=== PATIENT | female | born 1960 | race Caucasian/White ===

== ENCOUNTER 2020-06-19 13:52 | Outpatient (REF) | payer MEDICARE, MEDICAID, SELFPAY | END 2020-06-19 13:53 | disposition home or self-care (01) | LOC: HO.MDS 13:52 | PROVIDERS: Visit Provider Psychiatry & Neurology Neurology | DX: G35 Multiple sclerosis (principal) | CPT/HCPCS: 96365; J2930 ==

== ENCOUNTER 2020-07-24 09:14 | Outpatient (REF) | payer MEDICARE, MEDICAID, SELFPAY | END 2020-07-24 09:15 | disposition home or self-care (01) | LOC: HO.MDS 09:14 | PROVIDERS: PCP Internal Medicine; Visit Provider Psychiatry & Neurology Neurology | DX: G35 Multiple sclerosis (principal) | CPT/HCPCS: 96365; J2930 ==

== ENCOUNTER 2020-08-28 08:53 | Outpatient (REF) | payer MEDICARE, MEDICAID, SELFPAY | END 2020-08-28 08:54 | disposition home or self-care (01) | LOC: HO.MDS 08:53 | PROVIDERS: PCP Internal Medicine; Visit Provider Psychiatry & Neurology Neurology | DX: M47.12 Other spondylosis with myelopathy, cervical region (principal) | CPT/HCPCS: 96365; J2930 ==

== ENCOUNTER 2020-10-04 09:45 | Outpatient (REF) | payer MEDICARE, MEDICAID, SELFPAY | END 2020-10-04 09:46 | disposition home or self-care (01) | LOC: HO.MDS 09:45 | PROVIDERS: PCP Internal Medicine; Visit Provider Psychiatry & Neurology Neurology | DX: M47.12 Other spondylosis with myelopathy, cervical region (principal) | CPT/HCPCS: 96365; J2930 ==

== ENCOUNTER 2020-11-05 09:20 | Outpatient (REF) | payer MEDICARE, MEDICAID, SELFPAY | END 2020-11-05 09:21 | disposition home or self-care (01) | LOC: HO.MDS 09:20 | PROVIDERS: PCP Internal Medicine; Visit Provider Psychiatry & Neurology Neurology | DX: M47.12 Other spondylosis with myelopathy, cervical region (principal) | CPT/HCPCS: 96365; J2930 ==

== ENCOUNTER 2020-12-14 09:19 | Outpatient (REF) | payer MEDICARE, MEDICAID, SELFPAY | END 2020-12-14 09:20 | disposition home or self-care (01) | LOC: HO.MDS 09:19 | PROVIDERS: PCP Internal Medicine; Visit Provider Psychiatry & Neurology Neurology | DX: M47.12 Other spondylosis with myelopathy, cervical region (principal) | CPT/HCPCS: 96365; J2930 ==

== ENCOUNTER 2021-01-14 12:22 | Outpatient (REF) | payer MEDICARE, MEDICAID, SELFPAY | END 2021-01-14 12:23 | disposition home or self-care (01) | LOC: HO.MDS 12:22 | PROVIDERS: PCP Internal Medicine; Visit Provider Psychiatry & Neurology Neurology | DX: M47.12 Other spondylosis with myelopathy, cervical region (principal) | CPT/HCPCS: 96365; J2930 ==

== ENCOUNTER 2021-02-20 08:56 | Outpatient (REF) | payer MEDICARE, MEDICAID, SELFPAY | END 2021-02-20 08:57 | disposition home or self-care (01) | LOC: HO.MDS 08:56 | PROVIDERS: PCP Internal Medicine; Visit Provider Psychiatry & Neurology Neurology | DX: G35 Multiple sclerosis (principal); M47.12 Other spondylosis with myelopathy, cervical region | CPT/HCPCS: 96365; J2930 ==

== ENCOUNTER 2021-03-20 10:29 | Outpatient (REF) | payer MEDICARE, MEDICAID, SELFPAY | END 2021-03-20 10:30 | disposition home or self-care (01) | LOC: HO.MDS 10:29 | PROVIDERS: PCP Internal Medicine; Visit Provider Psychiatry & Neurology Neurology | DX: M47.12 Other spondylosis with myelopathy, cervical region (principal); G35 Multiple sclerosis | CPT/HCPCS: 96365; J2930 ==

== ENCOUNTER 2021-04-24 08:53 | Outpatient (REF) | payer MEDICARE, MEDICAID, SELFPAY | END 2021-04-24 08:54 | disposition home or self-care (01) | LOC: HO.MDS 08:53 | PROVIDERS: Visit Provider Psychiatry & Neurology Neurology | DX: G35 Multiple sclerosis (principal) | CPT/HCPCS: 96365; J2930 ==

== ENCOUNTER 2021-05-23 09:22 | Outpatient (REF) | payer MEDICARE, MEDICAID, SELFPAY | END 2021-05-23 09:23 | disposition home or self-care (01) | LOC: HO.MDS 09:22 | PROVIDERS: Visit Provider Psychiatry & Neurology Neurology | DX: G35 Multiple sclerosis (principal) | CPT/HCPCS: 96365; J2930 ==

== ENCOUNTER 2021-06-26 08:27 | Outpatient (REF) | payer MEDICARE, MEDICAID, SELFPAY | END 2021-06-26 08:28 | disposition home or self-care (01) | LOC: HO.MDS 08:27 | PROVIDERS: Visit Provider Psychiatry & Neurology Neurology | DX: G35 Multiple sclerosis (principal) | CPT/HCPCS: 96365; J2930 ==

== ENCOUNTER 2021-08-28 09:57 | Outpatient (REF) | payer MEDICARE, MEDICAID, SELFPAY | END 2021-08-28 09:58 | disposition home or self-care (01) | LOC: HO.MDS 09:57 | PROVIDERS: Visit Provider Psychiatry & Neurology Neurology | DX: G35 Multiple sclerosis (principal) | CPT/HCPCS: 96365; J2930 ==

== ENCOUNTER 2021-10-28 11:19 | Outpatient (REF) | payer MEDICARE, MEDICAID, SELFPAY | END 2021-10-28 11:20 | disposition home or self-care (01) | LOC: HO.MDS 11:19 | PROVIDERS: Visit Provider Psychiatry & Neurology Neurology | DX: G35 Multiple sclerosis (principal); M47.12 Other spondylosis with myelopathy, cervical region | CPT/HCPCS: 96365; J2930 ==

== ENCOUNTER 2021-11-25 11:20 | Outpatient (REF) | payer MEDICARE, MEDICAID, SELFPAY | END 2021-11-25 11:21 | disposition home or self-care (01) | LOC: HO.MDS 11:20 | PROVIDERS: Visit Provider Psychiatry & Neurology Neurology | DX: G35 Multiple sclerosis (principal); M47.12 Other spondylosis with myelopathy, cervical region | CPT/HCPCS: 96365; J2930 ==

== ENCOUNTER 2021-12-23 10:52 | Outpatient (REF) | payer MEDICARE, MEDICAID, SELFPAY | END 2021-12-23 10:53 | disposition home or self-care (01) | LOC: HO.MDS 10:52 | PROVIDERS: Visit Provider Psychiatry & Neurology Neurology | DX: G35 Multiple sclerosis (principal); M47.12 Other spondylosis with myelopathy, cervical region | CPT/HCPCS: 96365; J2930 ==

== ENCOUNTER 2022-01-21 10:54 | Outpatient (REF) | payer MEDICARE, MEDICAID, SELFPAY | END 2022-01-21 10:55 | disposition home or self-care (01) | LOC: HO.MDS 10:54 | PROVIDERS: Visit Provider Psychiatry & Neurology Neurology | DX: G35 Multiple sclerosis (principal); M47.12 Other spondylosis with myelopathy, cervical region | CPT/HCPCS: 96365; J2930 ==

== ENCOUNTER 2022-02-18 11:01 | Outpatient (REF) | payer MEDICARE, MEDICAID, SELFPAY | END 2022-02-18 11:02 | disposition home or self-care (01) | LOC: HO.MDS 11:01 | PROVIDERS: Visit Provider Psychiatry & Neurology Neurology | DX: G35 Multiple sclerosis (principal) | CPT/HCPCS: 96365; J2930 ==

== ENCOUNTER 2022-03-18 10:48 | Outpatient (REF) | payer MEDICARE, MEDICAID, SELFPAY | END 2022-03-18 10:49 | disposition home or self-care (01) | LOC: HO.MDS 10:48 | PROVIDERS: Visit Provider Psychiatry & Neurology Neurology | DX: G35 Multiple sclerosis (principal); M47.12 Other spondylosis with myelopathy, cervical region | CPT/HCPCS: 96365; J2930 ==

== ENCOUNTER 2022-04-15 10:51 | Outpatient (REF) | payer MEDICARE, MEDICAID, SELFPAY | END 2022-04-15 10:52 | disposition home or self-care (01) | LOC: HO.MDS 10:51 | PROVIDERS: Visit Provider Psychiatry & Neurology Neurology | DX: G35 Multiple sclerosis (principal) | CPT/HCPCS: 96365; J2930 ==

== ENCOUNTER 2022-05-12 10:50 | Outpatient (REF) | payer MEDICARE, MEDICAID, SELFPAY | END 2022-05-12 10:51 | disposition home or self-care (01) | LOC: HO.MDS 10:50 | PROVIDERS: Visit Provider Psychiatry & Neurology Neurology | DX: G35 Multiple sclerosis (principal) | CPT/HCPCS: 96365; J2930 ==

== ENCOUNTER 2022-06-10 10:18 | Outpatient (REF) | payer MEDICARE, MEDICAID, SELFPAY | END 2022-06-10 10:19 | disposition home or self-care (01) | LOC: HO.MDS 10:18 | PROVIDERS: Visit Provider Psychiatry & Neurology Neurology | DX: G35 Multiple sclerosis (principal) | CPT/HCPCS: 96365; J2930 ==

== ENCOUNTER 2022-07-07 09:56 | Outpatient (REF) | payer MEDICARE, MEDICAID, SELFPAY | END 2022-07-07 09:57 | disposition home or self-care (01) | LOC: HO.MDS 09:56 | PROVIDERS: Visit Provider Psychiatry & Neurology Neurology | DX: M47.12 Other spondylosis with myelopathy, cervical region (principal); G35 Multiple sclerosis | CPT/HCPCS: 96365; J2930 ==

== ENCOUNTER 2022-08-05 09:36 | Outpatient (REF) | payer MEDICARE, MEDICAID, SELFPAY | END 2022-08-05 09:37 | disposition home or self-care (01) | LOC: HO.MDS 09:36 | PROVIDERS: Visit Provider Psychiatry & Neurology Neurology | DX: M47.12 Other spondylosis with myelopathy, cervical region (principal) | CPT/HCPCS: 96365; J2930 ==

== ENCOUNTER 2022-09-08 09:33 | Outpatient (REF) | payer MEDICARE, MEDICAID, SELFPAY | END 2022-09-08 09:34 | disposition home or self-care (01) | LOC: HO.MDS 09:33 | PROVIDERS: Visit Provider Psychiatry & Neurology Neurology | DX: G35 Multiple sclerosis (principal) | CPT/HCPCS: 96365; J2930 ==

== ENCOUNTER 2022-10-06 11:12 | Outpatient (REF) | payer MEDICARE, MEDICAID, SELFPAY | END 2022-10-06 11:13 | disposition home or self-care (01) | LOC: HO.MDS 11:12 | PROVIDERS: Visit Provider Psychiatry & Neurology Neurology | DX: G35 Multiple sclerosis (principal) | CPT/HCPCS: 96365; J2930 ==

== ENCOUNTER 2022-10-28 11:01 | Outpatient (REF) | payer MEDICARE, MEDICAID, SELFPAY | END 2022-10-28 11:02 | disposition home or self-care (01) | LOC: HO.MDS 11:01 | PROVIDERS: Visit Provider Psychiatry & Neurology Neurology | DX: G35 Multiple sclerosis (principal) | CPT/HCPCS: 96365; J2930 ==

== ENCOUNTER 2022-11-25 10:19 | Outpatient (REF) | payer MEDICARE, MEDICAID, SELFPAY | END 2022-11-25 10:20 | disposition home or self-care (01) | LOC: HO.MDS 10:19 | PROVIDERS: Visit Provider Psychiatry & Neurology Neurology | DX: G35 Multiple sclerosis (principal) | CPT/HCPCS: 96365; J2930 ==

== ENCOUNTER 2022-12-23 10:23 | Outpatient (REF) | payer MEDICARE, MEDICAID, SELFPAY | END 2022-12-23 10:24 | disposition home or self-care (01) | LOC: HO.MDS 10:23 | PROVIDERS: Visit Provider Psychiatry & Neurology Neurology | DX: G35 Multiple sclerosis (principal) | CPT/HCPCS: 96365; J2930 ==

== ENCOUNTER 2023-01-27 10:39 | Outpatient (REF) | payer MEDICARE, MEDICAID, SELFPAY | END 2023-01-27 10:40 | disposition home or self-care (01) | LOC: HO.MDS 10:39 | PROVIDERS: Visit Provider Psychiatry & Neurology Neurology | DX: G35 Multiple sclerosis (principal) | CPT/HCPCS: 96365; J2930 ==

== ENCOUNTER 2023-02-26 10:25 | Outpatient (REF) | payer MEDICARE, MEDICAID, SELFPAY | END 2023-02-26 10:26 | disposition home or self-care (01) | LOC: HO.MDS 10:25 | PROVIDERS: PCP Internal Medicine; Visit Provider Psychiatry & Neurology Neurology | DX: G35 Multiple sclerosis (principal) | CPT/HCPCS: 96365; J2930 ==

== ENCOUNTER 2023-03-26 10:38 | Outpatient (REF) | payer MEDICARE, MEDICAID, SELFPAY | END 2023-03-26 10:39 | disposition home or self-care (01) | LOC: HO.MDS 10:38 | PROVIDERS: Visit Provider Psychiatry & Neurology Neurology | DX: G35 Multiple sclerosis (principal) | CPT/HCPCS: 96365; J2930 ==

== ENCOUNTER 2023-04-22 10:30 | Outpatient (REF) | payer MEDICARE, MEDICAID, SELFPAY | END 2023-04-22 10:31 | disposition home or self-care (01) | LOC: HO.MDS 10:30 | PROVIDERS: Visit Provider Psychiatry & Neurology Neurology | DX: G35 Multiple sclerosis (principal) | CPT/HCPCS: 96365; J2930 ==

== ENCOUNTER 2023-05-19 10:22 | Outpatient (REF) | payer MEDICARE, MEDICAID, SELFPAY | END 2023-05-19 10:23 | disposition home or self-care (01) | LOC: HO.MDS 10:22 | PROVIDERS: Visit Provider Psychiatry & Neurology Neurology | DX: G35 Multiple sclerosis (principal) | CPT/HCPCS: 96365; J2930 ==

== ENCOUNTER 2023-06-16 10:05 | Outpatient (REF) | payer MEDICARE, MEDICAID, SELFPAY | END 2023-06-16 10:06 | disposition home or self-care (01) | LOC: HO.MDS 10:05 | PROVIDERS: Visit Provider Psychiatry & Neurology Neurology | DX: G35 Multiple sclerosis (principal) | CPT/HCPCS: 96365; J2930 ==

== ENCOUNTER 2023-07-14 10:16 | Outpatient (REF) | payer MEDICARE, MEDICAID, SELFPAY | END 2023-07-14 10:17 | disposition home or self-care (01) | LOC: HO.MDS 10:16 | PROVIDERS: Visit Provider Psychiatry & Neurology Neurology | DX: G35 Multiple sclerosis (principal) | CPT/HCPCS: 96365; J2930 ==

== ENCOUNTER 2023-08-11 10:24 | Outpatient (REF) | payer MEDICARE, MEDICAID, SELFPAY | END 2023-08-11 10:25 | disposition home or self-care (01) | LOC: HO.MDS 10:24 | PROVIDERS: Visit Provider Psychiatry & Neurology Neurology | DX: G35 Multiple sclerosis (principal) | CPT/HCPCS: 96365; J2930 ==

== ENCOUNTER 2023-09-08 10:39 | Outpatient (REF) | payer MEDICARE, MEDICAID, SELFPAY | END 2023-09-08 10:40 | disposition home or self-care (01) | LOC: HO.MDS 10:39 | PROVIDERS: Visit Provider Psychiatry & Neurology Neurology | DX: G35 Multiple sclerosis (principal) | CPT/HCPCS: 96365; J2930 ==

== ENCOUNTER 2023-10-20 13:52 | Outpatient (REF) | payer MEDICARE, MEDICAID, SELFPAY ==
[2023-10-20 13:58] VITALS: BP 151/93; PULSE 92; RESP 20; TEMP 36.6; O2SAT 98; BMI 25.7
[2023-10-20] MEDS: methylPREDNISolone Sod Succ 1,000 MG in 0.9 % Sodium Chloride 100 ML 116 MG IV (14:29)
== END 2023-10-20 13:53 | disposition home or self-care (01) ==
LOC: HO.MDS 13:52
PROVIDERS: Visit Provider Psychiatry & Neurology Neurology
DX: G35 Multiple sclerosis (principal)
CPT/HCPCS: 96374; J2930

== ENCOUNTER 2023-11-11 09:22 | Outpatient (REF) | payer MEDICARE, MEDICAID, SELFPAY ==
[2023-11-11 09:34] VITALS: BP 131/86; PULSE 101; RESP 16; TEMP 36.5; O2SAT 94; BMI 25.7
[2023-11-11] MEDS: methylPREDNISolone Sod Succ 1,000 MG in 0.9 % Sodium Chloride 100 ML 116 MG IV (09:57)
== END 2023-11-11 09:23 | disposition home or self-care (01) ==
LOC: HO.MDS 09:22
PROVIDERS: Visit Provider Psychiatry & Neurology Neurology
DX: G35 Multiple sclerosis (principal)
CPT/HCPCS: 96365; J2930

== ENCOUNTER 2024-03-09 11:53 | Outpatient (REF) | payer MEDICARE, MEDICAID, SELFPAY ==
[2024-03-09 13:59] LABS: MANUAL DIFF FLAG NO
[2024-03-09 14:07] LABS: Basophils Absolute Auto 0.1 X10*3/uL (0.0-0.2); Basophils Percent Auto 1.2 % (0-2); Eosinophils Absolute Auto 0.2 X10*3/uL (0.0-0.4); Hematocrit 45.9 % (37.0-47.0); Hemoglobin 16.8 g/dl (12.0-16.0); Imm Gran Abs Auto 0.01 X10*3/uL (0.00-0.03); Imm Gran Pct Auto 0.2 % (0.0-0.4); Lymphocytes Absolute Auto 2.5 X10*3/uL (1.2-4.9); Lymphocytes Percent Auto 40.7 % (20-40); Mean Corpuscular HGB Conc 36.6 g/dl (31.0-35.0); Mean Corpuscular Hemoglobin 39.5 pg (27.0-33.0); Mean Platelet Volume 10.3 fL (9.4-12.3); Monocytes Absolute Auto 0.6 X10*3/uL (0.1-1.2); Monocytes Percent Auto 9.9 % (2-11); Neutrophils Absolute Auto 2.7 x10*3/uL (2.0-8.3); Platelet Count 135 X10*3/uL (160-400); Red Blood Count 4.25 X10*6/uL (4.20-5.50); Red Cell Distribution Width 13.5 % (11.0-16.0)
[2024-03-09 14:28] LABS: Alanine Aminotransferase 23 U/L (0-31); Albumin Level 3.9 g/dL (3.5-5.0); Alkaline Phosphatase 36 U/L (39-117); Anion Gap 13 (12-20); Aspartate Amino Transferase 34 U/L (5-31); Bilirubin Total 0.8 mg/dL (0.0-1.0); Blood Urea Nitrogen 8 mg/dL (9-16); Calcium 9.7 mg/dL (8.4-10.2); Carbon Dioxide 27 mmol/L (22-29); Chloride 105 mmol/L (96-108); Estimated Glomerular Filt Rate > 60; Glucose Random 104 mg/dL (60-115); Potassium 3.5 mmol/L (3.3-5.1); Sodium 141 mmol/L (135-145); Total Protein 7.5 g/dL (6.5-8.0)
[2024-03-09 14:49] LABS: TSH reflex Free T4 1.15 uIU/mL (0.32-4.0)
== END 2024-03-09 11:54 | disposition home or self-care (01) ==
LOC: HO.CHCLDS 11:53
PROVIDERS: Visit Provider Internal Medicine
DX: R22.1 Localized swelling, mass and lump, neck (principal); I10 Essential (primary) hypertension
CPT/HCPCS: 36415; 80053; 84443; 85025

== ENCOUNTER 2024-03-15 09:46 | Outpatient (REF) | payer MEDICARE, MEDICAID, SELFPAY ==
--- NOTE | ~2024-03-15 | US_ITS ---
EXAMINATION: US THYROID CLINICAL INFORMATION: Left neck mass. COMPARISON: None available. TECHNIQUE: Linear transducer grayscale and color Doppler examination with attention to the region of the thyroid. FINDINGS: SIZE: Measurements of the thyroid lobes and nodules are given in sagittal, anteroposterior and transverse dimensions respectively. Right Thyroid Lobe: 4.8 x 1.2 x 1.6 cm, volume 4.7 mL. Parenchyma: The gland echotexture is homogeneous. Thyroid vascularity is increased. Left Thyroid Lobe: 4.4 x 1.4 x 1.3 cm, volume 4.2 mL. Parenchyma: The gland echotexture is homogeneous. Thyroid vascularity is increased. Isthmus: 0.3 cm in maximum AP dimension. Estimated total number of nodules greater than or equal to 1 cm: 0. Compressor Stations Superintendent nodules are described as follows: 1. Location: Right mid. Size: 0.6 x 0.6 x 0.7 cm, volume 0.13 mL. Nodule characteristics: Composition: Solid (2). Echogenicity: Very hypoechoic (3). Shape: Not taller than wide (0). Margins: Smooth (0). Echogenic Foci: None (0). ACR TI-RADS total points: 5 ACR TI-RADS category: 4 2. Location: Right mid. Size: 0.3 x 0.2 x 0.3 cm, volume 0.01 mL. Nodule characteristics: Composition: Cannot be determined (2). Echogenicity: Hyperechoic (1). Shape: Not taller than wide (0). Margins: Smooth (0). Echogenic Foci: Macrocalcifications (1). ACR TI-RADS total points: 4 ACR TI-RADS category: 4 NODES: No lymphadenopathy is seen in the tissue surrounding the thyroid gland. OTHER: The palpable abnormality is described as left neck mass, palpable, question level 2, slightly left of midline inferior to thyroid by the hand hose cutter. The mass measures 5.4 x 2.1 x 5.6 cm. Echotexture similar but slightly hyperechoic relative to adjacent subcutaneous fat. There is internal vascularity. US/US thyroid IMPRESSION: Nonspecific 5.6 cm mass in the area of palpable concern. This could potentially be a lipoma, however the ultrasound appearance is nonspecific. Recommend clinical correlation with history and physical exam findings. If clinically indicated, further evaluation with MRI of the neck without and with contrast would be recommended. Normal size, homogeneous thyroid gland with increased vascularity. Recommend correlation for thyroiditis. Subcentimeter nodules in the right thyroid gland as above. No imaging his follow-up is recommended as per ACR TI-RADS guidelines. ACR TI-RADS RECOMMENDATION REFERENCE: Ultrasound-guided fine-needle aspiration, followup ultrasound, no further follow up. * TR1 (0 point) and TR2 (2 points): No FNA or follow up. * TR3 (3 points): FNA if more than or equal to 2.5 cm in maximum dimension, followup ultrasound in 1, 3 and 5 years if 1.5 to 2.4 cm in maximum dimension. * TR4 (4-6 points): FNA if more than or equal to 1.5 cm in maximum dimension, followup ultrasound in 1, 2, 3 and 5 years if 1 to 1.4 cm in maximum dimension. * TR5 (more than or equal to 7 points): FNA if more than or equal to 1 cm in maximum dimension, followup ultrasound every year for 5 years if 0.5 to 0.9 cm in maximum dimension. * TR3, TR4 or TR5 nodules that are below the size threshold for followup receive no follow up.
== END 2024-03-15 09:47 | disposition home or self-care (01) ==
LOC: HO.HMGCX 09:46
PROVIDERS: PCP Internal Medicine; Visit Provider Internal Medicine
DX: R22.1 Localized swelling, mass and lump, neck (principal); E78.1 Pure hyperglyceridemia; F51.01 Primary insomnia; I10 Essential (primary) hypertension
CPT/HCPCS: 76536

== ENCOUNTER 2024-03-24 09:56 | Outpatient (REF) | payer MEDICARE, MEDICAID, SELFPAY ==
--- NOTE | ~2024-03-24 | US_ITS ---
EXAMINATION: US ABDOMEN COMPLETE CLINICAL INFORMATION: Transaminitis. COMPARISON: None available. TECHNIQUE: Real-time imaging of the abdominal viscera. Severely limited visualization due to bowel gas and body habitus. FINDINGS: PANCREAS: Poorly visualized. ABDOMINAL AORTA: Limited visualization. INFERIOR VENA CAVA: Visualized portions are normal. LIVER: Hepatomegaly, 23.5 cm. Increased hepatic parenchymal heterogeneity and echogenicity could be associated with hepatocellular disease/hepatic steatosis and severely limits visualization. Correlation with liver function tests and clinical exam recommended to determine further management. GALLBLADDER: Gallbladder is surgically absent. COMMON BILE DUCT: Normal in caliber measuring 0.4 cm in diameter. RIGHT KIDNEY: Multiple tiny renal echogenic foci may represent vascular calcifications, artifact or tiny nonobstructive renal calculi. No hydronephrosis. Limited visualization. 0.8 cm upper pole cyst with benign features. There is no indication for follow-up imaging. The kidney measures 10.1 cm in maximum dimension. LEFT KIDNEY: No hydronephrosis. 0.4 cm lower pole calculus. 2.1 cm upper pole cyst with benign features. There is no indication for follow-up imaging. The kidney measures 9.7 cm in maximum dimension. SPLEEN: Normal. The spleen measures 11.4 cm in maximum dimension. FREE FLUID: None. US/US abdomen complete IMPRESSION: 1. Hepatomegaly, 23.5 cm. Increased hepatic parenchymal heterogeneity and echogenicity could be associated with hepatocellular disease/hepatic steatosis and severely limits visualization. Correlation with liver function tests and clinical exam recommended to determine further management. 2. Gallbladder is surgically absent. 3. Bilateral renal echogenic foci may represent vascular calcifications, artifact or tiny nonobstructive renal calculi. No hydronephrosis.
== END 2024-03-24 09:57 | disposition home or self-care (01) ==
LOC: HO.HMGCX 09:56
PROVIDERS: PCP Internal Medicine; Visit Provider Internal Medicine
DX: R74.01 Elevation of levels of liver transaminase levels (principal)
CPT/HCPCS: 76700

== ENCOUNTER 2024-04-04 09:35 | Outpatient (AMB) | payer MEDICARE, MEDICAID, SELFPAY ==
--- NOTE | 2024-04-04 09:36 | MHC.OFFVIS ---
Vital Signs 04/04/24 09:44 Height 5 ft 3 in Weight 143 lb 4.807 oz BMI 25.4 Intake Visit Reasons: Neck Mass Intake Note: Patient is seen in office for evaluation of a lipoma of the neck. Patient c/o: onset couple months, denies any discharge redness, pain, swelling, had ultrasound done. Manager Managed Care Required: No Accompanied by: Self / Same As Patient Allergies morphine [MORPHINE] Allergy (Unknown, Verified 02/23/24 10:39) CHOKE Medication List - Last Reconciled 04/04/24 by Hector Rios MD albuterol sulfate 90 mcg/actuation inhalation ibuprofen 800 mg PO TID lisinopril 5 mg PO DAILY mirtazapine 15 mg PO BEDTIME oxybutynin chloride 5 mg PO DAILY HPI Comments Details: Patient presents with a proximally 3 month history of an enlarging left neck mass. She was seen by medical doctor wanted ultrasound which demonstrates approximately 6 x 5 cm mass consistent with a lipoma. Patient was no other respiratory or thyroid symptoms. She has no such lesions elsewhere. Patient denies any fever, chills, night sweats, weight loss. Chart was reviewed and patient evaluated. Patient is half pack per day smoker for many years. [facility] Medical History (Updated 03/31/24 @ 11:37 by LARY Luna) Hypertension Primary insomnia Hypertriglyceridemia Surgical History (Updated 04/04/24 @ 09:53 by Hector Rios MD) Hx of hysterectomy Hx of appendectomy Hx laparoscopic cholecystectomy Physical Exam Vital Signs: BMI result Body Mass Index 25.4 Neck Other: Deeply situated 6 x 5 cm soft tissue mass consistent with a large lipoma. Thyroid grossly within normal limits. No other cervical periclavicular or axillary or groin adenopathy bilaterally Chest Other: Chest breath sounds bilaterally, HS 1 in GI Other: Abdomen corpulent, soft, benign Assessment & Plan Assessment & Plan (1) Palpable mass of neck: Code(s): R22.1 - Localized swelling, mass and lump, neck Category: Surgical Plan Risks, benefits, alternatives of excision of the deep soft tissue mass were reviewed with the patient and included but not limited to bleeding, infection, recurrence, numbness, pain, scarring, hoarseness, seroma formation and the patient wishes to proceed. All questions answered. Arrangements were made for this Coding Level of Care Code New Pt Level 5 (55317) Diagnoses Palpable mass of neck R22.1
[2024-04-04 09:44] VITALS: BMI 25.4
== END 2024-04-04 09:54 | disposition home or self-care (01) ==
PROVIDERS: PCP Internal Medicine; Visit Provider Surgery
DX: R22.1 Localized swelling, mass and lump, neck (principal)
CPT/HCPCS: 99204

== ENCOUNTER → 2024-04-04 09:35 | Outpatient (BNVA) | payer MEDICARE, MEDICAID, SELFPAY | PROVIDERS: PCP Internal Medicine; Visit Provider Surgery | DX: R22.1 Localized swelling, mass and lump, neck (principal) | CPT/HCPCS: 99202 ==

== ENCOUNTER 2024-05-05 05:40 | Day surgery (SDC) | payer MEDICARE, MEDICAID, SELFPAY ==
[2024-04-29 11:33] VITALS: BMI 25.3
--- NOTE | 2024-05-04 10:43 | P.CONAN_ITS ---
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) Patient Tobacco Use Status: Current everyday Tobacco user Tobacco use type: Cigarette Years Smoked: 40 Meds Allergies Allergy/AdvReac Type Severity Reaction Status Date / Time morphine [MORPHINE] Allergy Intermediate choking Verified 05/05/24 06:13 Home Medications ?Medication ?Instructions ?Recorded ?Confirmed ?Last Taken ?Type ibuprofen 800 mg tablet 800 mg PO TID PRN Pain 04/04/24 05/05/24 05/03/24 History lisinopril 5 mg tablet 10 mg PO BEDTIME 04/04/24 05/05/24 05/04/24 History mirtazapine 15 mg tablet 15 mg PO BEDTIME 04/04/24 05/05/24 Unknown History oxybutynin chloride 5 mg tablet 5 mg PO DAILY 04/04/24 05/05/24 Unknown History baclofen 10 mg tablet 10 mg PO TID PRN Pain 04/28/24 05/05/24 Unknown History Solu-Medrol IV DIRECTED 05/05/24 Unknown History Exam Height,Weight and Vital Signs: Height 5 ft 3 in Weight 64.864 kg Pertinent Lab Results Pertinent Lab Results: Laboratory Tests 03/09/24 Unknown WBC 6.0 Hgb 16.8 H Hct 45.9 Plt Count 135 L Sodium 141 Potassium 3.5 Chloride 105 Carbon Dioxide 27 BUN 8 L Creatinine 0.75 Assessment and Plan Assessment Anesthesia Assessment: Chart Reviewed
--- NOTE | 2024-05-04 20:13 | MHC.SHP ---
Pre-Procedural Eval Section A - 24 Hr Update-Section A only Date of Service: 05/05/24 The patient is an INPATIENT: No Changes since office visit: No Cold of Flu in the past 2 weeks, No New Medical Problems, No Changes in Medication and No Patient answered all questions Section B - Complete if H&P > 30 days Chief Complaint: Localized swelling, mass and lump, neck Allergies: Allergies Allergy/AdvReac Type Severity Reaction Status Date / Time morphine [MORPHINE] Allergy Intermediate choking Verified 04/29/24 08:20 Review of Systems Sugical H&P ROS: Negative: Constitution, Cardiovascular, Respiratory, Neurological, Psychiatric, Hem-Onc, Allergic/Immunologic, Gastrointestinal, Genitourinary, Musculoskeletal, Integumentary, Endocrine and Eyes/Ears/Nose/Throat Exam Surgical H&P Exam: Normal: HEENT, Normal: Heart, Normal: Lungs, Normal: Extremities, Normal: Abdomen, Normal: Skin and Normal: Neurological Plan I have reviewed the history and physical and performed a pertinent physical examination on my patient. No changes have occurred unless specified. Time Spent With Patient Time: Total time managing care of this patient today ____ minutes.
[2024-05-05 06:17] VITALS: BMI 27.4
[2024-05-05 06:23] VITALS: BP 127/81; PULSE 83; RESP 16; TEMP 36.4; O2SAT 93
[2024-05-05] MEDS: Lactated Ringers 1,000 ML 100 ML IVCONT (06:40)
[2024-05-05] MEDS: Albuterol Sulfate (0.083%) 2.5 MG/3 ML VIAL.NEB INHALE (06:46)
--- NOTE | 2024-05-05 06:54 | HO.ANESPROP2 ---
[facility] Active Problems Active Problems: All Active Problems Palpable mass of neck (Acute) Past Medical History Medical History Smoker Self-catheterizes urinary bladder Multiple sclerosis Hypertension Primary insomnia Hypertriglyceridemia Functional capacity: independent ambulation Patient : No Family History Family history of problems with anesthesia: No Surgical History Surgical History Hx of hysterectomy Hx of appendectomy Hx laparoscopic cholecystectomy History of Problems with Anesthesia: No Social History Social History Are you a primary acute care certified nursing assistant to a significant other at home: No 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) Patient Tobacco Use Status: Current everyday Tobacco user Tobacco use type: Cigarette Years Smoked: 40 Meds Allergies Allergy/AdvReac Type Severity Reaction Status Date / Time morphine [MORPHINE] Allergy Intermediate choking Verified 05/05/24 06:13 Active Medications: Current Medications Lactated Ringer's (Lr) 1,000 mls @ 100 mls/hr IVCONT .Q10H DEBORA Last Admin: 05/05/24 06:40 Dose: 100 mls/hr Home Medications ?Medication ?Instructions ?Recorded ?Confirmed ?Last Taken ?Type ibuprofen 800 mg tablet 800 mg PO TID PRN Pain 04/04/24 05/05/24 05/03/24 History lisinopril 5 mg tablet 10 mg PO BEDTIME 04/04/24 05/05/24 05/04/24 History mirtazapine 15 mg tablet 15 mg PO BEDTIME 04/04/24 05/05/24 Unknown History oxybutynin chloride 5 mg tablet 5 mg PO DAILY 04/04/24 05/05/24 Unknown History baclofen 10 mg tablet 10 mg PO TID PRN Pain 04/28/24 05/05/24 Unknown History Solu-Medrol IV DIRECTED 05/05/24 Unknown History Exam Height,Weight and Vital Signs: Height 5 ft 3 in Weight 70.216 kg Last Vital Signs Temp 97.6 F 05/05/24 06:23 Pulse 83 05/05/24 06:23 Resp 16 05/05/24 06:23 BP 127/81 05/05/24 06:23 Pulse Ox 93 05/05/24 06:23 O2 Del Method Room Air 05/05/24 06:23 Airway Mallampati Class: III TM Dist: >3cm Neck ROM: Full Denture: Upper and Lower Heart: RRR Lungs: Diminished Assessment and Plan Assessment Anesthesia Assessment: Anesthesia Plan Discussed, Smoking Cess. Discussed and Chart Reviewed Final Anesthetic Review Family History of Problems with Anesthesia: No History of Problems with Anesthesia: No NPO: Yes ASA Class: III Final Preanesthetic Review: Meds/Allgs Chart Reviewed, Consent Obtained/Reviewed and Anes Risks/Benef Reviewed Patient Risk: Low Procedure Risk: Low Anesthetic Plan Anesthetic Plan: GA Disposition: Standard PACU
--- NOTE | 2024-05-05 07:00 | PC.NURSE ---
Patient in preop. Received ventolin nebulizer, tolerated well. Lung sounds clear post treatment. SaO2 remains 91-93% room air. Respirations easy and regular. Dr. Virgen at bedside and made aware. Okay to proceed with surgery. Shelia POCKETED SPRING ASSEMBLER also aware.
--- NOTE | 2024-05-05 08:12 | W.PM.OPN ---
Operative Note Operative Note Date of Service: 05/05/24 Narrative: Preoperative diagnosis: [] Deep left neck tumor/lipoma Postop diagnosis: [] The same Procedure [] excision deep left neck lipoma Surgeon: [] Gabriel Systems Software Engineer: [] Hunter Type of Anesthesia: [] General Indication for surgery: [] Final specimen measured approximately 7 x 4 cm consistent with a large lipoma Findings: [] Patient brought to the operating room, placed on operative table in supine position, after an adequate level of general anesthesia was induced, the left neck was prepped and draped in usual sterile fashion. Using a transverse incision over the mass in question in the left mid neck, this carried down through skin, subcutaneous tissue, and platysma muscle. Identification of a large mass consistent with a lipoma was identified and circumferentially dissected out using blunt, sharp, and Bovie dissection. Uneventful enucleation was then performed and specimen sent to pathology. Wound was irrigated and secured hemostasis. It was closed in the following manner; platysma muscle was reapproximated using interrupted 3-0 Vicryl suture. Interrupted inverted deep dermal 3-0 Vicryl sutures followed by running subcuticular 4-0 Vicryl sutures were placed. Steri-Strips and sterile dressings were applied. Wound was infiltrated at the beginning and at the end with 0.5% Marcaine. Sponge, needle, and instrument counts were reported correct. Patient tolerated the procedure well and emerged from anesthesia stable condition. EBL minimal
[2024-05-05 08:15] VITALS: BP 113/79; PULSE 115; RESP 16; TEMP 36.2; O2SAT 93
[2024-05-05 08:20] VITALS: BP 116/72; PULSE 111; RESP 16; O2SAT 90
[2024-05-05 08:25] VITALS: BP 124/83; PULSE 112; RESP 16; O2SAT 90
[2024-05-05 08:30] VITALS: BP 132/71; PULSE 105; RESP 16; O2SAT 90
[2024-05-05 08:45] VITALS: BP 110/68; RESP 16; TEMP 36.2; O2SAT 90
== END 2024-05-05 09:12 | disposition home or self-care (01) ==
PROVIDERS: PCP Internal Medicine; Visit Provider Surgery
PROC: (CPT 21554; principal; 2024-05-05 07:30)
DX: D17.0 Benign lipomatous neoplasm of skin and subcutaneous tissue of head, face and neck (principal); I10 Essential (primary) hypertension; E78.1 Pure hyperglyceridemia; F51.01 Primary insomnia; G35 Multiple sclerosis; Z79.1 Long term (current) use of non-steroidal anti-inflammatories (NSAID); Z79.899 Other long term (current) drug therapy; Z88.5 Allergy status to narcotic agent; Z98.890 Other specified postprocedural states; F17.210 Nicotine dependence, cigarettes, uncomplicated
CPT/HCPCS: 21554; 88304; J0690; J1100; J2250; J2405; J2704; J2795; J3010

== ENCOUNTER → 2024-05-05 05:40 | Outpatient (BNV) | payer MEDICARE, MEDICAID, SELFPAY | PROVIDERS: PCP Internal Medicine; Visit Provider Surgery | DX: D17.0 Benign lipomatous neoplasm of skin and subcutaneous tissue of head, face and neck (principal) | CPT/HCPCS: 21556 ==

== ENCOUNTER 2024-05-16 11:18 | Outpatient (AMB) | payer MEDICARE, MEDICAID, SELFPAY ==
--- NOTE | 2024-05-16 11:35 | MHC.OFFVIS ---
Intake Visit Reasons: S/P WLE deep Lt. cervical mass Intake Note: Patient here s/p WLE deep Lt cervical mass on 05-05-2024. Reports incision healing well. Patient c/o: denies oozing, bleeding. 2nd concern: large growth on right buttock. Has been excised twice before. Tender when sitting on it. Typewriter Mechanic Required: No Accompanied by: Self / Same As Patient Allergies morphine [MORPHINE] Allergy (Intermediate, Verified 05/16/24 11:37) choking HPI Comments Details: 1. Patient presents for follow-up. She has minimal incisional discomfort. Pathology is benign. 2. Patient has a right buttock soft tissue mass. She has had this excised twice in the past and has recurred. It was symptomatic, and that is increasing in size and she would like to have this removed. She did not mentioned this on prior visit. 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) Patient Tobacco Use Status: Current everyday Tobacco user Tobacco use type: Cigarette Years Smoked: 40 Physical Exam Neck Other: Wound clean dry and intact healing very well Back/Spine/Pelvis Other: Patient has a multilobular soft tissue mass involving the right buttock measuring approximately 8 x 5 cm consistent with a multi lobulated recurrent lipoma Assessment & Plan Assessment & Plan (1) Postop check: Code(s): Z09 - Encounter for follow-up examination after completed treatment for conditions other than malignant neoplasm Category: Medical (2) Lipoma of buttock: Code(s): D17.1 - Benign lipomatous neoplasm of skin and subcutaneous tissue of trunk Category: Medical Plan 1. Neck wound instructions have been given. 2. Risks, benefits, alternatives of wide local excision of right buttock recurrent lipoma were reviewed with the patient and included but not limited to bleeding, infection, recurrence, numbness, pain, scarring, seroma formation, wound dehiscence and the patient wishes to proceed. Arrangements made for this. All questions answered. Coding Level of Care Code Est Pt Level 5 (00022) Global (05694) Diagnoses Postop check Z09 Lipoma of buttock D17.1
== END 2024-05-16 11:38 | disposition home or self-care (01) ==
PROVIDERS: PCP Internal Medicine; Visit Provider Surgery
DX: Z09 Encounter for follow-up examination after completed treatment for conditions other than malignant neoplasm (principal); D17.1 Benign lipomatous neoplasm of skin and subcutaneous tissue of trunk
CPT/HCPCS: 99024

== ENCOUNTER → 2024-05-16 11:18 | Outpatient (BNVA) | payer MEDICARE, MEDICAID, SELFPAY | PROVIDERS: PCP Internal Medicine; Visit Provider Surgery | DX: D17.1 Benign lipomatous neoplasm of skin and subcutaneous tissue of trunk (principal); Z09 Encounter for follow-up examination after completed treatment for conditions other than malignant neoplasm; Z87.2 Personal history of diseases of the skin and subcutaneous tissue; Z98.890 Other specified postprocedural states | CPT/HCPCS: 99212 ==

== ENCOUNTER 2025-01-05 10:51 | Outpatient (REF) | payer MEDICARE, MEDICAID, SELFPAY ==
--- NOTE | ~2025-01-05 | MR_ITS ---
CLINICAL HISTORY: Multiple Sclerosis MR cervical spine with and without gadolinium Comparison: None Findings: Visualized intracranial contents are unremarkable. Soft tissues of the neck are normal. Cervical cord normal size. There is a 4 mm focus of T2 signal elevation within the central cord at C3. There is a 5 mm focus of elevated T2/stir signal intensity within the lower cervical cord at C6. Within the right posterior paramedian cord at the T1 level, there is a 2 mm focus of elevated STIR signal. Loss of normal cervical lordosis. No acute fractures or pathologic bone lesions. Mild reactive signal throughout the endplates of the cervical and upper thoracic spine. C2-C3:Moderate disc desiccation. No significant canal stenosis. No significant foraminal stenosis. C3-C4:Moderate disc desiccation. Mild diffuse disc bulge. Mild facet and uncovertebral hypertrophy bilaterally. Mild canal stenosis. Mild bilateral foraminal stenosis. C4-C5:Moderate disc height loss and desiccation. Mild diffuse disc bulge. Mild facet and uncovertebral hypertrophy bilaterally. Mild canal stenosis. Moderate right and mild left foraminal stenosis. C5-C6:Moderate disc desiccation. Mild disc height loss and diffuse disc bulge. Mild facet and uncovertebral hypertrophy bilaterally. Mild canal stenosis. Mild bilateral foraminal stenosis. C6-C7:Moderate disc desiccation. Mild disc height loss and diffuse disc bulge. Mild facet and uncovertebral hypertrophy. Mild canal stenosis. Mild bilateral foraminal stenosis. C7-T1: [Moderate disc desiccation. Mild diffuse disc bulge. Mild facet and uncovertebral hypertrophy. Mild canal stenosis. Mild bilateral foraminal stenosis. IMPRESSION: 1. Abnormal signal intensity within the cervicothoracic cord as described above, consistent with a mild degree of multiple sclerosis. 2. Multilevel degenerative disc and facet disease, as well as uncovertebral hypertrophy. 3. Multilevel mild canal stenoses. 4. Multilevel foraminal stenoses, worst at C4-C5 where there is moderate foraminal stenosis. This document has been electronically signed by: Christian Morris MD on 01/05/2025 16:17:46
--- NOTE | ~2025-01-05 | MR_ITS ---
EXAMINATION: MR BRAIN WITHOUT AND WITH CONTRAST CLINICAL INFORMATION: Multiple sclerosis, follow-up. COMPARISON: 10/06/2019, 02/13/2016. TECHNIQUE: Multiplanar, multisequence MRI of the brain was obtained before and after the intravenous administration of 7 mL Gadavist. Examination performed on a 1.5 Reina high-field magnet. FINDINGS: There is no diffusion restriction. There is no intracranial hemorrhage, acute infarction, mass effect, or edema. Ventricles, sulci, and cisterns are normal in size and configuration for patient age. No shift of midline. No significant abnormal hemosiderin deposition is identified. New punctate tiny lesion just to the left of the obex (series 9, image 5). New focal lesion in the left putamen (series 9, image 14). There are otherwise numerous, stable scattered punctate and minimally confluent foci of white matter T2 hyperintensity in the periventricular, pericallosal, callosal marginal, and callosal septal white matter, in keeping with patient's known multiple sclerosis. There is a stable tiny lesion in the anterior body of the corpus callosum. After the administration of contrast, no abnormal intra or extra-axial enhancement is evident. Midline structures appear normally formed. No callosal atrophy is evident. The pituitary gland appears normal. Posterior fossa structures appear normal. Cerebellar tonsils are appropriately located. Major flow voids are preserved within the skull base. The globes and orbital contents demonstrate no abnormalities. Paranasal sinuses are clear bilaterally. Nasal septum is midline without spur. Trace fluid in the mastoid tips bilaterally. Tympanic cavities are normally aerated. Extracranial soft tissues demonstrate no abnormalities. No suspicious bone marrow changes are evident. Atlantoaxial joint is normal. MR/MR head/brain wo/w con IMPRESSION: 1. New tiny punctate demyelinating T2 hyperintense lesions in the posterior fossa just to the left of the obex, and also in the left putamen. Unknown if these are truly new lesions, or rather better detected lesions due to a newer new or and far superior 1.5 Reina Siemens magnet. 2. Otherwise, stable pattern of scattered T2/FLAIR signal hyperintensities in the supratentorial white matter in keeping with inflammatory demyelination. No abnormal enhancing lesions identified. 3. There is no callosal atrophy identified. 4. There is no intracranial hemorrhage, acute infarction, mass effect, or edema. Electronically signed by: Liam Joyner MD 01/05/2025 12:50 PM EDT
--- OUTSIDE RECORDS SUMMARY | 2025-01-05 12:02 | XMS_ITS | Encounter Summary ---
Author Organization [employer] Address [address] [place] [address] Care Team Providers Care Chemistry Tutor Name Role Phone Devyn Kwok MD Primary Care Provider [phone] Reason for Visit * Reason Comments Med Refill Encounter Details Date Type Department Care Team ([facility] st Contact Info) Description 06/28/[address] [facility] PEDS [address] [place] [address] Devyn Kwok MD [address] [place] [address] Essential hypertension Social History Tobacco Use Types Packs/Day Years Used Date Smoking Tobacco: Every Day Cigarettes 0.5 25 Smokeless Tobacco: Never Comments Unknown Sex and Gender Information Value Date Recorded Sex Assigned at Female 06/23/2022 10:19 AM EDT Legal Sex Female 10:19 AM EDT Gender Identity Female 06/23/2022 10:19 AM EDT Sexual Orientation Straight 06/23/2022 10 :19 AM EDT documented as of this encounter Plan of Treatment Not on file documented as of this encounter Visit Diagnoses Diagnosis Essential hypertension Unspecified essential hypertension documented in this encounter Care Teams Chemistry Tutor Relationship Specialty Start Date End Date Devyn Kwok MD [address] [place] [address] PCP - General Internal Medicine 08/06/12 documented as of this encounter
--- OUTSIDE RECORDS SUMMARY | 2025-01-05 12:02 | XMS_ITS | Encounter Summary ---
Author Organization [employer] Address [address] [place] [address] Care Team Providers Care Management Aide Name Role Phone Devyn Kwok MD Primary Care Provider [phone] Encounter Details Date Type Department Care Team ([facility] st Contact Info) Description 12/25/2022 Orders Only [facility] MED & PEDS [address] [place] [address] Courtney Pearce LPN Social History Tobacco Use Types Packs/Day Years Used Date Smoking Tobacco: Never Assessed Comments Unknown Sex and Gender Information Value Date Recorded Sex Assigned at Female 06/23/2022 10:19 AM EDT Legal Sex Female 10:19 AM EDT Gender Identity Female 06/23/2022 10:19 AM EDT Sexual Orientation Straight 06/23/2022 10 :19 AM EDT documented as of this encounter Plan of Treatment Not on file documented as of this encounter Visit Diagnoses Not on filedocumented in this encounter Care Teams Management Aide Relationship Specialty Start Date End Date Devyn Kwok MD [address] [place] [address] PCP - General Internal Medicine 08/06/12 documented as of this encounter
--- OUTSIDE RECORDS SUMMARY | 2025-01-05 12:02 | XMS_ITS | Encounter Summary ---
Author Organization [employer] Address [address] [facility] 7t [place] [address] Care Team Providers Care R And D Lab Technician Name Role Phone Devyn Kwok MD Primary Care Provider [phone] Reason for Referral * Consultation (Routine) - Closed Specialty Diagnoses / Procedures Referred By Wendy dominguez Referred To Contact General Surgery Diagnoses Neck mass Devyn Kwok MD [address] [place] [address] Phone: tel: fax: [facility] Sur[facility] [address] [place] [address] Drive 3rd Floor [place], [place] Phone: tel: fax: Referral ID Status Reason Start Date Expiration Date V isits Requested Visits Authorized [id number] Closed Specialty Services Required 03/17/2024 03/17/2025 1 1 * Imaging (Routine) - Closed Specialty Diagnoses / Procedures Referred By Wendy dominguez Referred To Contact Radiology Diagnoses Transaminitis Procedures US Abdomen Complete Devyn Kwok MD [address] [place] [address] Phone: tel: fax: [address] Phone: tel: fax: Referral ID Status Reason Start Date Expiration Date Visits Re quested Visits Authorized [id number] Closed 03/11/2024 03/11/2025 1 1 Encounter Details Date Type Department Care Team (Late st Contact Info) Description 03/11/2024 Orders Only [facility] [address] [facility] [place] [address] Devyn Kwok MD [address] [place] [address] Macrocytosis without anemia (Primary Dx); Transaminitis; Need for hepatitis B screening test; Neck mass Social History Tobacco Use Types Packs/Day Years [...] as of this encounter Plan of Treatment Scheduled Orders Name Type Priority Associated Diagnoses Orde r Schedule Vitamin B12/Folate, Serum Panel Lab Routine Macrocytosis without anemia Expected: 03/11/2024, Expires: 03/11/2025 Hepatitis C Antibody with Reflex to HCV, RNA, Quantitative, Real-Time PCR Lab Routine Transaminitis Expected: 03/11/2024, Expires: 03/11/2025 Hepatitis A IgM Lab Routine Transaminitis Expected: 03/11/2024 (Approximate), Expires: 03/11/2025 Hepatitis B Surface Antibody, Qualitative Lab Routine Transaminitis Need for hepatitis B screening test Expected: 03/11/2024 (Approximate), Expires: 03/11/2025 Scheduled Referrals Name Type Priority Associated Diagnoses Orde r Schedule Referral to General Surgery Outpatient Referral Routine Neck mass Expected: 03/17/2024 (Approximate), Expires: 03/17/2025 documented as of this encounter Procedures Procedure Name Priority Date/Time Associated Diagnosis Comments GROSS AND MICROSCOPIC LEVEL 3 Routine 05/05/2024 8:00 AM EDT Macrocytosis without anemia US ABDOMEN COMPLETE Routine 03/24/2024 1 0:30 AM EDT Transaminitis documented in this encounter Results * Gross and Microscopic Level 3 (05/05/2024 8:00 AM EDT) 05/05/2024 8:00 AM EDT 05/05/2024 8:33 AM EDT [facility] - 05/06/2024 2:34 PM EDT ----- ------- Name: Nadira Whitaker ?Age/Sex: 64/F ? : 1960 Unit#: [id number] ?? Attend Dr: Hector Rios MD ?Re05/05/24 ?Status: DEP SDC ? Location: HO.SSS ?Disch: ? ----- ------- SPEC : [id number] ? RECD: 05/05/24-832 ? STATUS: ??SOUT ? REQ NUM: [id number] ? ELEANOR: 05/05/24 ? SUBM DR: Hector Rios MD ? ENTERED: ??05/05/24 ?SP TYPE: Surgical ? OTHR DR: Devyn Kwok MD ? ORDERED: ??Gross Micro L3 ? Diagnosis ?? Soft tissue, deep left cervical, excision: ??Mature lobular adipose tissue consistent with ?? lipoma. ?Clinical History Localized swelling, mass and lump, neck ?Microscopic Description Microscopic sections reviewed. ? Material Received ?? Left cervical deep lipoma ? Gross Description Received in formalin labeled ?left cervical deep lipoma? is a partially fragmented, smooth and shaggy, ramirez-yellow lobular portion of adipose tissue measuring 5.5 x 4.0 x 2.5 cm. The margins are inked and the specimen is serially sectioned to reveal homogeneous yanes- yellow lobular fat with focal congestion. ??No fleshy, hemorrhagic or necrotic foci are identified. ??Respiratory Manager sections are submitted in cassettes A1-A3. CEDS Copies To: ?? Devyn Kwok MD ?? [facility] ?? [address] ?? [place] [address] ?? [phone] ?? Hector Rios MD ?? [facility] General Surgeons ?? [address] ?? [place] [address] ?? [phone] ?? [email or web address] ? CONTINUED ON NEXT PAGE ----- ------- Name: Nadira Whitaker ?Age/Sex: 64/F ? : 1960 Unit#: [id number] ?? Attend Dr: Hector Rios MD ?Re05/05/24 ?Status: DEP SDC ? Location: HO.SSS ?Disch: ? ----- ------- SPEC : [id number] ? RECD: 05/05/24 ? STATUS: ??SOUT ? REQ NUM: [id number] ? ELEANOR: 05/05/24 ? SUBM DR: Hector Rios MD ? ENTERED: ??05/05/24 ?SP TYPE: Surgical ? OTHR DR: Devyn Kwok MD ? ORDERED: ??Gross Micro L3 ? ----- ------- Signed (signature on file) [place] 05/06/24 1434 ? ----- ------- ? END OF REPORT ? us Generic External Data Provider LAB CYTOLOGY TREASURE JASMINE Final Result [facility] [address] [place] [address] [phone] * US Abdomen Complete (03/24/2024 10:30 AM EDT) Anatomical Region Laterality Modality Abdomen Ultrasound 03/24/2024 10:3 0 AM EDT Narrative 04/04/2024 2:53 PM EDT ? [facility] ?[address] ? [place] [address] ? Ultrasound Report ? Signed ? Patient: Julianne,Nadira ?MR#: [id number] ?? 908 ? : 1960 ?Acct:[id number] ? Age/Sex: 64 / F ?ADM Date: 03/24/24 ? Loc: HO.HMGCX ? Attending Dr: Devyn Kwok MD ? Ordering Physician: Devyn Kwok MD ?? Date of Service: 03/24/24 ?? Procedure(s): US abdomen complete ?? Accession Number(s): [id number] ? cc: Devyn Kwok MD ? EXAMINATION: ?? US ABDOMEN COMPLETE ? CLINICAL INFORMATION: ?? Transaminitis. ? COMPARISON: ?? None available. ? TECHNIQUE: ?? Real-time imaging of the abdominal viscera. Severely limited ?? visualization due to bowel gas and body habitus. ? FINDINGS: ? PANCREAS: Poorly visualized. ? ABDOMINAL AORTA: Limited visualization. ? INFERIOR VENA CAVA: Visualized portions are normal. ? LIVER: Hepatomegaly, 23.5 cm. Increased hepatic parenchymal ?? heterogeneity and echogenicity could be associated with hepatocellular ?? disease/hepatic steatosis and severely limits visualization. ?? Correlation with liver function tests and clinical exam recommended to ?? determine further management. ? GALLBLADDER: Gallbladder is surgically absent. ? COMMON BILE DUCT: Normal in caliber measuring 0.4 cm in diameter. ? RIGHT KIDNEY: Multiple tiny renal echogenic foci may represent vascular ?? calcifications, artifact or tiny nonobstructive renal calculi. No ?? hydronephrosis. Limited visualization. ? 0.8 cm upper pole cyst with benign features. There is no indication for ?? follow-up imaging. The kidney measures 10.1 cm in maximum dimension. ? LEFT KIDNEY: No hydronephrosis. 0.4 cm lower pole calculus. 2.1 cm ?? upper pole cyst with benign features. There is no indication for ?? follow-up imaging. The kidney measures 9.7 cm in maximum dimension. ? SPLEEN: Normal. The spleen measures 11.4 cm in maximum dimension. ? FREE FLUID: None. ? US/US abdomen complete ?? IMPRESSION: ?? 1. Hepatomegaly, 23.5 cm. Increased hepatic parenchymal heterogeneity ?? and echogenicity could be associated with hepatocellular ?? disease/hepatic steatosis and severely limits visualization. ?? Correlation with liver function tests and clinical exam recommended to ?? determine further management. ? 2. Gallbladder is surgically absent. ? 3. Bilateral renal echogenic foci may represent vascular ?? calcifications, artifact or tiny nonobstructive renal calculi. No ?? hydronephrosis. ? Dictated By: ?Juliet Higgins MD ? Signed By: ?<Electronically signed by Juliet Higgins MD in OV> ? 04/04/24 1449 ? DD/ 1030 ? TD/TT: ? Sugar Chipper Machine Operator: ? Procedure Note Donotjesinterpreter, Image - 04/04/2024 [facility] [address] [place] [address] [place] [address] Ultrasound Report Signed Patient: Jolly Whitaker#: [id number] : 1960Acct:[id number] Age/Sex: 64 / FADM Date: 03/24/24 Loc: .HMGCX Attending Dr: Devyn Kwok MD Ordering Physician: Devyn Kwok MD Date of Service: 03/24/24 Procedure(s): US abdomen complete Accession Number(s): [id number] cc: Devyn Kwok MD EXAMINATION: US ABDOMEN COMPLETE CLINICAL INFORMATION: Transaminitis. COMPARISON: None available. TECHNIQUE: Real-time imaging of the abdominal viscera. Severely limited visualization due to bowel gas and body habitus. FINDINGS: PANCREAS: Poorly visualized. ABDOMINAL AORTA: Limited visualization. INFERIOR VENA CAVA: Visualized portions are normal. LIVER: Hepatomegaly, 23.5 cm. Increased hepatic parenchymal heterogeneity and echogenicity could be associated with hepatocellular disease/hepatic steatosis and severely limits visualization. Correlation with liver function tests and clinical exam recommended to determine further management. GALLBLADDER: Gallbladder is surgically absent. COMMON BILE DUCT: Normal in caliber measuring 0.4 cm in diameter. RIGHT KIDNEY: Multiple tiny renal echogenic foci may represent vascular calcifications, artifact or tiny nonobstructive renal calculi. No hydronephrosis. Limited visualization. 0.8 cm upper pole cyst with benign features. There is no indication for follow-up imaging. The kidney measures 10.1 cm in maximum dimension. LEFT KIDNEY: No hydronephrosis. 0.4 cm lower pole calculus. 2.1 cm upper pole cyst with benign features. There is no indication for follow-up imaging. The kidney measures 9.7 cm in maximum dimension. SPLEEN: Normal. The spleen measures 11.4 cm in maximum dimension. FREE FLUID: None. US/US abdomen complete IMPRESSION: 1. Hepatomegaly, 23.5 cm. Increased hepatic parenchymal heterogeneity and echogenicity could be associated with hepatocellular disease/hepatic steatosis and severely limits visualization. Correlation with liver function tests and clinical exam recommended to determine further management. 2. Gallbladder is surgically absent. 3. Bilateral renal echogenic foci may represent vascular calcifications, artifact or tiny nonobstructive renal calculi. No hydronephrosis. Dictated By: Juliet Higgins MD Signed By: <Electronically signed by Juliet Higgins MD in OV> 04/04/24 1449 DD/ 1030 TD/TT: Sugar Chipper Machine Operator: us Devyn Kwok MD IMG US PROCEDURES Final Res ult documented in this encounter Visit Diagnoses Diagnosis Macrocytosis without anemia- Primary Other specified diseases of blood and blood-forming organs Transaminitis Nonspecific elevation of levels of transaminase or lactic acid dehydrogenase (LDH) Need for hepatitis B screening test Neck mass Swelling, mass, or lump in head and neck documented in this encounter Care Teams R And D Lab Technician Relationship Specialty Start Date End Date Devyn Kwok MD [address] [place] [id number] PCP - General Internal Medicine 08/06/12 documented as of this encounter
--- OUTSIDE RECORDS SUMMARY | 2025-01-05 12:02 | XMS_ITS | Clinical Summary ---
Author Organization [employer] Address [address] [facility] 7t [place] [address] Care Team Providers Care Continuous Mining Operator Name Role Phone Devyn Kwok MD Primary Care Provider [phone] Allergies Active Allergy Reactions Criticality Noted Date Comments Morphine Swelling 09/23/2010 Medications ibuprofen 800 MG tablet take 1 Tablet by Oral route 3 times every day as needed 03/06/20 22 Active methylPREDNISol one sodium succinate, PF, (SOLU-Medrol) 1000 MG injection infuse (30MG/KG) by intravenous route every 6 hours over as needed Active Misc. Devices (Walker) misc to use daily for ambulating 04/18/20 15 Active baclofen (Lioresal) 10 MG tablet Take 1 tablet by mouth at bed time. 09/11/19 16 Active Spacer/Aero-Hol ding Chambers deviceIndicatio ns:COVID-19 1 each Every 4-6 hours as needed (wheezing, cough). 1 each 05/06/20 23 Active albuterol 108 (90 Base) MCG/ACT inhalerIndicati ons:COVID-19 Inhale 2 puffs every 4 (four) hours if needed for wheezing or shortness of breath. 18 g 2 10/13/19 24 Active lisinopril 10 MG tabletIndicatio ns:Primary hypertension Take 1 tablet (10 mg) by mouth Once per day. 30 tablet 11 03/09/20 24 025 Active oxybutynin (Ditropan) 5 MG tabletIndicatio ns:Other spondylosis with myelopathy, cervical region TAKE 1 TABLET BY MOUTH EVERY DAY 90 tablet 2 06/17/20 24 Active ibuprofen 800 MG tablet TAKE 1 TABLET BY MOUTH THREE TIMES A DAY NEEDED 60 tablet 3 10/04/19 25 Active mirtazapine (Remeron) 15 MG tabletIndicatio ns:Depression with anxiety TAKE 1 TABLET BY MOUTH EVERY DAY BEFORE BEDTIME 90 tablet 1 12/23/19 25 Active mirtazapine (Remeron) 15 MG tabletIndicatio ns:Depression with anxiety TAKE 1 TABLET BY MOUTH EVERY DAY BEFORE BEDTIME 90 tablet 1 04/14/20 24 025 Discontinued Active Problems Problem Noted Date Diagnosed Date Macrocytosis 03/07/2022 Hypertriglyceridemia 03/07/2022 Multiple sclerosis 04/07/2013 Neurogenic bladder 04/07/2013 Anemia 10/04/2010 Insomnia 10/18/2008 Encounters Date Type Department Care Team Description 12/22/2024 Refill [facility] [address] [place] [address] Devyn Kwok MD Depression with anxiety from Last 3 Months Social History Tobacco Use Types Packs/Day Years Used Date Smoking Tobacco: Every Day Cigarettes 0.5 25 Smokeless Tobacco: Never Tobacco Cessation:Ready to Q uit: Not Asked; Counseling Given: Not Answered Comments Unknown Sex and Gender Information Value Date Recorded Sex Assigned at Female 06/23/2022 10:19 AM EDT Legal Sex Female 10:19 AM EDT Gender Identity Female 06/23/2022 10:19 AM EDT Sexual Orientation Straight 06/23/2022 10 :19 AM EDT Last Filed Vital Signs Vital Sign Reading Time Taken Comments Blood Pressure 151/93 03/09/2024 11:16 AM EDT Pulse 112 03/09/2024 11:16 AM EDT Temperature 36.8 ??C (98.3 ??F) 03/09/2024 11:16 AM E DT Respiratory Rate 19 03/09/2024 11:16 AM EDT Oxygen Saturation 94% 03/09/2024 11:16 AM EDT Inhaled Oxygen Concentration - - Weight 69.4 kg (153 lb) 03/09/2024 11:16 AM EDT Height 158.8 cm (5' 2.5 ) 03/09/2024 11:16 AM ED T Body Mass Index 27.54 03/09/2024 11:16 AM EDT Plan of Treatment Health Maintenance Due Date Last Done Comments CT Colonography 1960 Colonoscopy 1960 Colorectal Cancer Screening 1960 Depression Screening 1960 FIT DNA/Cologuard 1960 FIT 1960 FOBT 1960 HIV Screening 1960 SDOH Screening 1960 Sigmoidoscopy 1960 Alcohol/Substance Use Screening 1972 Pneumococcal Vaccine: 50+ Years (1 of 2 - PCV) 1979 Pap Smear 1981 Cervical Cancer Screening 1990 HPV/Cotest 1990 Zoster Vaccines (1 of 2) 2010 Mammogram 04/13/2022 04/13/2020, 09/28/2017 COVID-19 Vaccine (3 2023-2 5 season) 2024 09/01/2021, 11/19/2020 Influenza Vaccine (#1) 2024 , 05/20/2017 Tobacco Screening 03/09/2025 03/09/2024 Lipid Panel 03/06/2027 03/06/2022 DTaP/Tdap/Td Vaccines (2 - T d or Tdap) 05/20/2027 05/20/2017 RSV Patients and Patients Aged 60 years or older (1 - 1-dose 75+ series) 2035 Hepatitis C Screening Completed 03/06/2022 HIB Vaccines Aged Out No longer eligi ble based on patient's age to complete this topic HPV Vaccines Aged Out No longer eligi ble based on patient's age to complete this topic Hepatitis A Vaccines Aged Out No long er eligible based on patient's age to complete this topic Hepatitis B Vaccines Aged Out No long er eligible based on patient's age to complete this topic IPV Vaccines Aged Out No longer eligi ble based on patient's age to complete this topic Meningococcal B Vaccine Aged Out No l onger eligible based on patient's age to complete this topic Meningococcal Vaccine Aged Out No tatiana wes eligible based on patient's age to complete this topic RSV under 20 months Aged Out No longe r eligible based on patient's age to complete this topic Rotavirus Vaccines Aged Out No longer eligible based on patient's age to complete this topic Procedures Procedure Name Priority Date/Time Associated Diagnosis Comments ZZZ HISTORICAL HEPATITIS C AB W/REFL TO HCV RNA, QN, PCR Routine 03/06/2022 10:55 AM EDT LIPID PANEL, STANDARD Routine 03/06/2022 10:55 AM EDT BI MAMMOGRAM SCREENING BILATERAL Routine 04/13/2020 11:32 AM EDT from Last 3 Months or Most Recently Relevant to Health Maintenance Results * HEPATITIS C AB W/REFL TO HCV RNA, QN, PCR (03/06/2022 10:55 AM EDT) HEPATITIS C ANTIBODY NON-REACT [facility] NON-REACT [facility] INDEX 0.09 <1.00 [facility] Comment: ?? HCV antibody was non-reactive. There is no laboratory ?? evidence of HCV infection. ?? In most cases, no further action is required. However, if recent HCV exposure is suspected, a test for HCV RNA (test code 32465) is suggested. ?? For additional information please refer to http://education.V[employer] [facility]/faq/UVG99c9 (This link is being provided for informational/ educational purposes only.) ?? 03/06/2022 10:5 5 AM EDT us Devyn Kwok MD HISTORICAL/NON ORDERABLE NISREEN JERONIMO Final Result [facility] [address] * (ABNORMAL) LIPID PANEL, STANDARD (03/06/2022 10:55 AM EDT) Chol/HDLC Ratio 7.0(H) <5.0 (calc) [facility] Cholesterol, Total 175 <200 mg/dL [facility] HDL Cholesterol 25(L) > OR = 50 mg/dL [facility] LDL Cholesterol 115(H) mg/dL (calc) [facility] Comment: Reference range: <100 ?? Desirable range <100 mg/dL for primary prevention; ?? <70 mg/dL for patients with CHD or diabetic patients ?? with > or = 2 CHD risk factors. ?? LDL-C is now calculated using the Pankaj ?? calculation, which is a validated novel method providing ?? better accuracy than the Friedewald equation in the ?? estimation of LDL-C. ?? Ronak MICHEL et al. JAME. 2013;310(19): 6016-9560 ?? (http://Tink.VasoNova/faq/LNM705) Non-HDL Cholesterol 150(H) <130 mg/dL (calc) [facility] Comment: For patients with diabetes plus 1 major ASCVD risk ?? factor, treating to a non-HDL-C goal of <100 mg/dL ?? (LDL-C of <70 mg/dL) is considered a therapeutic ?? option. Triglycerides 234(H) <150 mg/dL [facility] Comment: ?? If a non-fasting specimen was collected, consider repeat triglyceride testing on a fasting specimen if clinically indicated. ?? Wilma et al. J. of Clin. Lipidol. 2015;9:129-169. ?? 03/06/2022 10:5 5 AM EDT us Devyn Kwok MD LAB BLOOD ORDERABLES Final Result [facility] [address] * 3D DIGITAL MARIBELL SCR MAMMO 1 (04/13/2020 11:32 AM EDT) Anatomical Region Laterality Modality Breast Bilateral Mammography 04/13/2020 11:3 2 AM EDT Narrative 04/13/2020 11:34 AM EDT Refer to the Notes tab for result details [facility] Procedure: 3D DIGITAL MARIBELL SCR MAMMO 1 Procedure Note Provider, MD Michael - 11/15/2022 Refer to the Notes tab for result details [facility] Procedure: 3D DIGITAL MARIBELL SCR MAMMO 1 us Devyn Kwok MD IMG BI PROCEDURES Final Res ult from Last 3 Months or Most Recently Relevant to Health Maintenance Insurance [facility] STANDARD MEDICARE Care Teams Continuous Mining Operator Relationship Specialty Start Date End Date Devyn Kwok MD [address] [place] [address] [place] [address] PCP - General Internal Medicine 08/06/12
[2025-01-05] MEDS: gadobutroL 7.5 ML VIAL IVPUSH (12:10)
== END 2025-01-05 10:52 | disposition home or self-care (01) ==
LOC: HO.MRI 10:51
PROVIDERS: PCP Internal Medicine; Visit Provider Registered Nurse
DX: G35 Multiple sclerosis (principal)
CPT/HCPCS: 70553; 72156; A9585

== ENCOUNTER → 2025-01-05 11:15 | Outpatient (BNV) | payer MEDICARE, MEDICAID, SELFPAY | PROVIDERS: PCP Internal Medicine; Visit Provider Radiology Diagnostic Radiology | DX: M50.03 Cervical disc disorder with myelopathy, cervicothoracic region (principal); G37.9 Demyelinating disease of central nervous system, unspecified | CPT/HCPCS: 70553 ==